=== PATIENT | male | born 1970 | race Caucasian/White ===

== ENCOUNTER 2020-05-16 13:43 | Emergency (ER) | payer BC ==
[2020-05-16 13:50] VITALS: RESP 18
[2020-05-16] MEDS ORDERED: DIAZEPAM 5 MG/ML 2 ML INJ IVP STA (14:12)
[2020-05-16] MEDS ORDERED: KETOROLAC 60 MG/2 ML VIAL IVP STA (14:12)
--- NOTE | 2020-05-16 14:21 | ED ---
General Adult HPI - General Chief complaint: Back Pain/Injury Stated complaint: back pain Time Seen by Provider: 05/16/20 13:45 Source: patient, RN notes reviewed, old records reviewed Mode of arrival: wheelchair Limitations: no limitations - History of Present Illness Initial comments: This is a 49-year-old male presents emergency Department complaining of lower back pain. Patient states he was doing some heavy work which is part of his job. Patient states it started about 2 weeks ago but today he went to lift something and all of a sudden had severe pain across his lower back and he felt like it was a back spasm. Patient denies any loss of function. Patient denies any numbness or weakness. Patient states he can move his legs but just hurts really bad. Patient denies any radiation of pain down the legs. Patient denies any urinary incontinence or urinary retention. Patient denies any blunt trauma to the area. - Related Data Previous Rx's Medication Instructions Recorded Cyclobenzaprine [Flexeril] 10 mg PO TID #20 tab 05/16/20 Ibuprofen [Motrin] 600 mg PO Q6HR PRN #20 tab 05/16/20 Allergies Allergy/AdvReac Type Severity Reaction Status Date / Time Sulfa (Sulfonamide Allergy Rash/Hives Verified 05/16/20 13:50 Antibiotics) Review of Systems ROS Statement: Those systems with pertinent positive or pertinent negative responses have been documented in the HPI. ROS Other: All systems not noted in ROS Statement are negative. Past Medical History Past Medical History: No Reported History Past Surgical History: Orthopedic Surgery, Tonsillectomy Additional Past Surgical History / Comment(s): jaw sx, skull sx, right 2nd toe amputation Past Psychological History: Anxiety Smoking Status: Light tobacco smoker Past Alcohol Use History: Occasional Past Drug Use History: Cocaine, Marijuana General Exam - General Exam Comments Initial Comments: GENERAL: Patient is well-developed and well-nourished. Patient is nontoxic and well- hydrated and is in moderate distress. ENT: Neck is soft and supple. No significant lymphadenopathy is noted. Oropharynx is clear. Moist mucous membranes. Neck has full range of motion without eliciting any pain. EYES: The sclera were anicteric and conjunctiva were pink and moist. Extraocular movements were intact and pupils were equal round and reactive to light. Eyelids were unremarkable. PULMONARY: Unlabored respirations. Good breath sounds bilaterally. No audible rales rhonchi or wheezing was noted. CARDIOVASCULAR: There is a regular rate and rhythm without any murmurs gallops or rubs. ABDOMEN: Soft and nontender with normal bowel sounds. SKIN: Skin is clear with no lesions or rashes and otherwise unremarkable. NEUROLOGIC: Patient is alert and oriented x3. Cranial nerves II through XII are grossly intact. Motor and sensory are also intact. Normal speech, volume and content. Symmetrical smile. MUSCULOSKELETAL: Normal extremities with adequate strength and full range of motion. No lower extremity swelling or edema. No calf tenderness. Straight leg test is negative bilaterally patient tried to lift his own legs he had significant lower back p ain which she stated felt like a spasm. It was bilateral. Patient's perineum exam had normal sensation LYMPHATICS: No significant lymphadenopathy is noted PSYCHIATRIC: Normal psychiatric evaluation. Limitations: no limitations Course Vital Signs 05/16/20 05/16/20 13:46 16:06 Temperature 98.1 F 97.9 F Pulse Rate 86 81 Respiratory 18 18 Rate Blood Pressure 118/86 118/64 O2 Sat by Pulse 98 97 Oximetry Medical Decision Making - Medical Decision Making X-ray of the lumbar spine shows no acute abnormality. Patient received Valium and Toradol as well as Dilaudid emergency Department feeling considerably better but still had some pain. Disposition Clinical Impression: Strain of lumbar region Disposition: HOME SELF-CARE Instructions (If sedation given, give patient instructions): Acute Low Back Pain (ED) Prescriptions: Cyclobenzaprine [Flexeril] 10 mg PO TID #20 tab Ibuprofen [Motrin] 600 mg PO Q6HR PRN #20 tab PRN Reason: For pain Is patient prescribed a controlled substance at d/c from ED?: No Referrals: None,Stated [Primary Care Provider] - 1-2 days Time of Disposition: 16:29
[2020-05-16] MEDS ORDERED: HYDROmorphone 0.5 MG/0.5 ML SYRINGE IVP STA (15:48)
--- NOTE | 2020-05-16 15:56 | XR ---
EXAMINATION TYPE: XR lumbosacral spine min 4V DATE OF EXAM: 05/16/2020 CLINICAL HISTORY: pain COMPARISON: NONE TECHNIQUE: Frontal, lateral, and oblique images of the lumbar spine are obtained. FINDINGS: There are 5 lumbar type vertebral bodies identified. The lumbar spine shows satisfactory alignment without evidence of acute fracture or dislocation. Vertebral body heights are within normal limits. Mild scattered degenerative changes noted. The overlying soft tissue appears unremarkable. IMPRESSION: No acute fracture or dislocation is seen in the lumbar spine.ICD 10 NO FRACTURE, INITIAL EVALUATION
[2020-05-16 16:08] VITALS: BP 118/64; PULSE 81; TEMP 97.9
[2020-05-16] MEDS ORDERED: ACET/COD 300 MG/30 MG STARTER PACK 6 TAB BTL PO STA (16:30)
== END 2020-05-16 16:58 | disposition home or self-care (01) ==
LOC: EC 13:43
DX: S39.012A Strain of muscle, fascia and tendon of lower back, initial encounter (principal); F17.200 Nicotine dependence, unspecified, uncomplicated; Z88.2 Allergy status to sulfonamides; X50.0XXA Overexertion from strenuous movement or load, initial encounter; Y92.69 Other specified industrial and construction area as the place of occurrence of the external cause
CPT/HCPCS: 72110; 99284; 96374; 96375 ×2; J3360; J1885; J1170